=== PATIENT | female | born 1960 | race Caucasian/White ===

== ENCOUNTER 2021-08-24 07:31 | Inpatient (IN) ==
--- NOTE | 2021-08-20 12:07 | Anesthesiology Consultation ---
Date of Service August 20, 2021 Assessment & Plan (1) Encounter for pre-operative examination: Chart Review Chart Review: Acceptable Risk for Surgery History Surgery Operation Date: 08/24/21 07:45 Proposed Procedures p L3-L5 Decompression and Fusion, Possible L5-S1, Spinal Cord Monitoring - Aamir Finch DO Height/Weight Height: 5 ft 4 in Weight: 89.811 kg Allergies Allergy/AdvReac Type Severity Reaction Status Date / Time No Known Allergies Allergy Verified 08/07/21 16:12 Medications Home Medications Medication Instructions Recorded Confirmed Last Taken albuterol sulfate 90 mcg/actuation 1 inh INHALATION QID PRN 08/07/21 08/07/21 Unknown aerosol inhaler aspirin 81 mg tablet,delayed 81 mg PO QPM 08/07/21 08/07/21 Unknown release etodolac 500 mg tablet 500 mg PO BID 08/07/21 08/07/21 Unknown furosemide 40 mg tablet 40 mg PO QPM 08/07/21 08/07/21 Unknown gabapentin 100 mg tablet 100 mg PO BID 08/07/21 08/07/21 Unknown lisinopril 10 mg tablet 10 mg PO QPM 08/07/21 08/07/21 Unknown naproxen sodium 220 mg tablet 220 mg PO BID 08/07/21 08/07/21 Unknown (Aleve) simvastatin 10 mg tablet 10 mg PO PM 08/07/21 08/07/21 Unknown Past Medical History Medical History Asthma rare use of PRN inh Diverticular disease History of DVT (deep vein thrombosis) LLE post op 3-4 years ago HLD (hyperlipidemia) HTN (hypertension) Osteoarthritis Past Family History Family History Other No family history of adverse response to anesthesia Past Surgical History Surgical History History of x 3 History of colonoscopy History of hernia repair History of laparoscopy History of tonsillectomy Social History Smoking Status: Current every day smoker tobacco type: cigarettes Smoking cigarettes per day: 6 per day Do You Dip or Chew Tobacco: No Hx Alcohol Use: Yes alcohol intake frequency: holidays/special occasions only Hx Substance Use: No substance use type: does not use Lab Results Anesthesia Preop Results Results Lab Comments: 07/30/21 Hb 14 Plt 251 K+ 3.9 Creat 0.72 Testing Electrocardiogram Date: 07/30/21 Findings: + NSR @ (72)
[~2021-08-24 07:31] MED LIST: ACETAMINOPHEN 500 MG TAB PO SCH; CeleBREX 200 MG CAP PO SCH; GABAPENTIN 600 MG DOSE PO SCH; LR 15ML/HR IV SCH; ceFAZolin 2000MG 2,000 MG/15 ML SYR IV SCH
[2021-08-24] MEDS ORDERED: MIDAZOLAM HCL 1 MG/ML 2ML VIAL ONE (09:05)
[2021-08-24] MEDS ORDERED: HYDROmorphone INJ 2 MG/ML SYR/VIAL ONE (09:05)
[2021-08-24] MEDS ORDERED: ATROPINE SULFATE 0.1 MG/ML 10ML SYR IV PRN (09:25)
[2021-08-24] MEDS ORDERED: HYDROmorphone INJ 1 MG/ML SYRINGE IV PRN ×2 (09:25→14:19)
[2021-08-24] MEDS ORDERED: PROMETHAZINE HCL 6.25 MG in SODIUM CHLORIDE 0.9% 50 ML IV PRN (09:25)
[2021-08-24] MEDS ORDERED: ONDANSETRON INJ 2 MG/ML 2 ML VIAL IV PRN ×2 (09:25→14:19)
--- NOTE | 2021-08-24 10:13 | History & Physical Bridge Note ---
Date of Service August 24, 2021 History & Physical Bridge Note I have examined the patient, reviewed the History & Physical and in the interval since the performance of the History & Physical I have noted the following changes of clinical significance: no changes noted
--- NOTE | 2021-08-24 10:15 | History & Physical Report ---
Date of Service August 24, 2021 Assessment & Plan (1) Neurogenic claudication due to lumbar spinal stenosis: Plan: L3-L5 decompression and fusion, possible L5-S1 History of Present Illness Chief Complaint: Back and bilateral leg pain Primary Care Provider: Akanksha Wood This is a 61-year-old female who presents with current persistent back and leg pain. Failing course of nonoperative care she is here for surgical invention. Allergies Allergy/AdvReac Type Severity Reaction Status Date / Time No Known Allergies Allergy Verified 08/24/21 08:04 Home Medications Medication Instructions Recorded Confirmed Type albuterol sulfate 90 mcg/actuation 1 inh INHALATION QID PRN 08/07/21 08/24/21 History aerosol inhaler aspirin 81 mg tablet,delayed 81 mg PO QPM 08/07/21 08/24/21 History release etodolac 500 mg tablet 500 mg PO BID 08/07/21 08/24/21 History furosemide 40 mg tablet 40 mg PO QPM 08/07/21 08/24/21 History gabapentin 100 mg tablet 100 mg PO BID 08/07/21 08/24/21 History lisinopril 10 mg tablet 10 mg PO QPM 08/07/21 08/24/21 History naproxen sodium 220 mg tablet 220 mg PO BID 08/07/21 08/24/21 History (Aleve) simvastatin 10 mg tablet 10 mg PO PM 08/07/21 08/24/21 History Past Med/Surg History Medical History Asthma rare use of PRN inh Diverticular disease History of DVT (deep vein thrombosis) LLE post op 3-4 years ago HLD (hyperlipidemia) HTN (hypertension) Osteoarthritis Surgical History History of x 3 History of colonoscopy History of hernia repair History of laparoscopy History of tonsillectomy Family History Other No family history of adverse response to anesthesia Social History Smoking Status: Current every day smoker Cigarettes Per Day: 6 per day; Second Hand Exposure: No; Do You Dip or Chew Tobacco: No; Tobacco Cessation Education Requested by Patient: No Hx Alcohol Use: Yes Hx Substance Use: No Preferred Language: Citizen Of [place] Communication Ability: Effective Hotel Security Officer Required: No Beliefs That Will Affect Care: None Current Living Situation: Family Current Living Situation Comment: grandson lives with pt Feels Safe at Home: Yes Safety Concerns: Feels Safe At This Time Assistive Devices: Glasses Physical Exam Physical Exam: Patient is alert and oriented Heart regular rate and rhythm Lungs clear Results & Data ([facility]) Vital Signs (Past 12 Hours) Vital Signs Temp Pulse Resp BP Pulse Ox 08/24/21 08:00 36.6 C 88 18 120/67 95
[2021-08-24] MEDS ORDERED: BUPIVACAINE/EPINEPHRINE 0.25% 1:200,000 30 ML VIAL ONE (10:25)
[2021-08-24] MEDS ORDERED: ceFAZolin 330 MG/ML 1 GM VIAL ONE (10:25)
[2021-08-24] MEDS ORDERED: ePHEDrine sulfate 50 MG/ML SYR ONE (11:15)
[2021-08-24] MEDS ORDERED: FLOSEAL HEMOSTATIC MATRIX 10ML TOP ONE (11:28)
[2021-08-24] MEDS ORDERED: KETOROLAC 30 MG/ML VIAL ONE (11:40)
[2021-08-24] MEDS ORDERED: PROPOFOL IV EMULSION 10 MG/ML 20 ML VIAL IV ONE (11:40)
[2021-08-24] MEDS ORDERED: ROCURONIUM BROMIDE 10 MG/ML 5 ML VIAL IV ONE (11:40)
[2021-08-24] MEDS ORDERED: LIDOCAINE 2% 2 ML VIAL/AMP(20MG/ML) INFIL ONE (11:40)
[2021-08-24] MEDS ORDERED: ONDANSETRON INJ 2 MG/ML 2 ML VIAL ONE (11:40)
[2021-08-24] MEDS ORDERED: DEXAMETHASONE SOD INJ 4 MG/ML VIAL ONE (11:40)
--- NOTE | 2021-08-24 13:02 | Operative Report ---
Post Operative Report Pre & Post Diagnosis Operation Date: 08/24/21 09:35 Pre-Op Diagnosis: Spondylolisthesis, Lumbar Region Post-Op Diagnosis: Spondylolisthesis, Lumbar Region I identified the patient and participated in the time-out.: Yes Procedure Operation Date: 08/24/21 09:35 Actual Procedures #1 lumbar decompression with bilateral medial facetectomies and foraminotomies L2-L3, L3-L4 and L4-5. #2 posterior spinal fusion L3-L4 L4-5. #3 placement posterior instrumentation L3-L5. #4 interbody fusion L3-L4 L4-L5. #5 placement peek cage 11 x 22 mm at L3-L4 L4-5. #6 placement locally harvested morselized autograft in the posterior gutters. #7 placement infuse collagen sponge, and master graft in the posterior lateral gutters and I factor interbody space. Surgeon Aamir Finch, DO Hitcher Juan Sanders Estimated Blood Loss 500 Findings See Below The patient is 5 foot 4 inches tall weighing over 84 kg with a BMI of 32. The patient's body mass did contribute to significant technical difficulties required deepest retractors longus instruments in order to perform her procedure. This had at least 50% increase to the operative time. Specimens None Indications This is a 61-year-old female who presents to the emergent diagnosis after failing course of nonoperative care she is here for the above-mentioned procedure. Description of Procedure Patient was met with identified informed consent obtained. Patient was then taken to the operative suite underwent an patient placed in a prone position the Arya table atop the Adrián frame. All bony prominences well-padded eyes inspected to ensure no external pressure placed upon the. This point the lumbar spine was prepped and draped in normal sterile fashion. Sharp dissection with the assistance of Bovie cautery was performed down to and exposing the lamina and transverse processes of L3-L4 and L5 bilaterally. From caudal to cephalad fashion complete laminectomy L4 and L3 and partial laminectomy L2 was performed. This did include bilateral medial facetectomies and foraminotomies to address all spinal stenosis. Pedicle screws then placed at L3-L4-L5 bilaterally with assistance of fluoroscopy and appropriately sized linda placed. Failure of a transforaminal approach and left knee discectomy L4-L5 was performed endplates curetted to subcortical bleeding bone and 11 x 22 mm peek cage filled with I factor tapped in position. Then proceeded to L3-L4 and again by way of a transforaminal approach on the left pleat discectomy was performed endplates curetted to subcortically bone and again 11 x 22 mm peek cage filled with I factor tapped in position. The rods then compressed locked into final position bilaterally. The transverse processes of L3 L4-5 burred to subcortical bleeding bone. Infuse collagen sponge master graft and local autograft was placed in the posterior gutters. 15 round RAISA drain inserted. The incision was then closed with 1 Vicryl in the fascia 2-0 Vicryl subcutaneously and 4 Monocryl for final skin closure. Steri-Strip sterile dressings placed. Patient waken taken to PACU stable condition. Please note spinal cord monitoring was utilized at the procedure no changes noted. Lastly Juan Sanders was present at the entire procedure and all the patient positioning complex portions of the surgery and final skin closure. I attest to the content of the Intraoperative Record and any orders documented therein. Any exceptions are noted below.
--- NOTE | 2021-08-24 13:44 | Fluoroscopy Report ---
FL lumbar spine 2-3V HISTORY: 61 years-old Female L3-5 DECOMPRESSION/FUSION/POSSIBLE L5-S1 status post lumbar spine fusio n COMPARISON: None TECHNIQUE: 2 spot fluoroscopic images of the lumbar spine were obtained utilizing 28.0 seconds fluoro scopy time FINDINGS: Posterior linda and screw fusion hardware with discectomy changes are noted at L3-L5. The hardware appe ars intact. No unexpected opaque foreign body. Alignment appears satisfactory. IMPRESSION: Fluoroscopic assistance as above. ACT 112: Negative or not required by law. The above report was generated using voice recognition software. It may contain grammatical, syntax o r spelling errors. Electronically signed by: Ruel Velasquez M.D. 08/24/2021 1:43 PM
[2021-08-24] MEDS ORDERED: MAGNESIUM HYDROXIDE SUSP 30 ML UDC PO PRN (14:19)
[2021-08-24] MEDS ORDERED: bisacodyL 10 MG SUPP PR PRN (14:19)
[2021-08-24] MEDS ORDERED: oxyCODONE HCL IR 5 MG TAB (IMMEDIATE RELEASE) PO PRN (14:19)
[2021-08-24] MEDS ORDERED: LORazepam 0.5 MG/1 ML VIAL IV PRN (14:19)
[2021-08-24] MEDS ORDERED: FAMOTIDINE 20 MG TAB PO PRN (14:19)
[2021-08-24] MEDS ORDERED: DO NOT ADMINISTER PNEUMOCOCCAL VACCINE PRN (14:19)
[2021-08-24] MEDS ORDERED: DO NOT ADMINISTER FLU VACCINE PRN (14:19)
[2021-08-24] MEDS ORDERED: ALBUTEROL HFA 8 GM INHALER INH PRN (14:19)
[2021-08-24] MEDS ORDERED: HYDROmorphone INJ 0.5 MG/0.5 ML SYR IV PRN (14:19)
[2021-08-24] MEDS ORDERED: ONDANSETRON 4 MG OD TAB PO PRN (14:19)
[2021-08-24] MEDS ORDERED: SOD PHOSPHATE/SOD BIPHOSPHATE ENEMA 132 ML BTL PR PRN (14:19)
[2021-08-24] MEDS ORDERED: diphenhydrAMINE Capsule 25 MG CAP PO PRN (14:19)
[2021-08-24] MEDS ORDERED: METOCLOPRAMIDE HCL INJ 5 MG/ML 2 ML VIAL IV PRN (14:19)
[2021-08-24] MEDS ORDERED: NALOXONE HCL 0.4 MG/1 ML VIAL/CARP IV PRN (14:19)
[2021-08-24] MEDS ORDERED: PROMETHAZINE HCL 12.5 MG in SODIUM CHLORIDE 0.9% 50 ML IV PRN (14:19)
[2021-08-24] MEDS ORDERED: LORazepam 0.5 MG TAB PO PRN (14:19)
[2021-08-24] MEDS ORDERED: ACETAMINOPHEN 1,000 MG/100 ML VIAL IV PRN (14:19)
[2021-08-24] MEDS ORDERED: ALUMINUM/MAGNESIUM SUSP 30 ML UDC PO PRN (14:19)
[2021-08-24] MEDS ORDERED: hydrOXYzine HCl 25 MG TAB PO PRN (14:19)
--- NOTE | 2021-08-24 14:32 | Anesthesiology Progress Note ---
Date of Service August 24, 2021 Anesthesia Post Procedure Vital Signs Vital Signs: Temp Pulse Pulse Resp BP BP Pulse Ox 08/24/21 14:23 36.4 C L 72 16 127/77 94 08/24/21 14:00 36.5 C 78 21 108/77 96 08/24/21 13:50 85 11 L 138/79 91 08/24/21 13:40 82 19 120/67 98 08/24/21 13:30 80 12 116/64 97 08/24/21 13:21 36.4 C L 82 16 126/64 98 08/24/21 08:00 36.6 C 88 18 120/67 95 Pain Intensity Back: Pain Intensity: 4 Transfer of Care Handoff Completed per policy Notes Mental Status: alert / awake / arousable Patient Amnestic to Procedure: Yes Nausea / Vomiting: adequately controlled Pain: adequately controlled Airway Patency, RR, SpO2: stable & adequate BP & HR: stable & adequate Hydration State: stable & adequate Anesthetic Complications: no major complications apparent
--- NOTE | 2021-08-24 15:10 | Hospitalist Consultation ---
Date of Consultation August 24, 2021 Assessment & Plan (1) Neurogenic claudication due to lumbar spinal stenosis: - Pain management, bowel regimen and DVT ppx per the primary team - PT/OT consults - anticipates going home with home health afterwards - Follow am CBC to monitor for acute blood loss - Postop Day #0 (2) HTN (hypertension): - Continue on lisinopril, furosemide, aspirin daily (3) HLD (hyperlipidemia): - Continue on statin therapy (4) Tobacco use: - Cessation discussed at bedside, smokes 6 cig daily, encouraged reducing by 1-2 cig per week to improve wound healing ability. She is agreeable to such and willing to try. (5) Osteoarthritis: - Hx of such DVT ppx: - teds, scds, asa CODE: Full code Dispo: From home, likely to remain in the hospital x 1-2 Supervising Physician Co-Signing Physician Notes Care coordinated with Sai Licea PA-C. Agree with above note. Patient seen and examined. Please refer to her notes for full details. Vital signs reviewed. Physical exam: General exam: Alert and oriented. Not in acute distress. CVS: S1 and S2 heard, regular rate and rhythm, no murmurs. RS: Clear to auscultation, no wheezing or crackles. ABD: Soft, bowel sounds present, nontender, no distention. Musculoskeletal: s/p Back surgery. Dressing intact DISTRIBUTED ENERGY SYSTEMS CONSULTANT: Nonfocal. EXT: No edema, no erythema. Labs: Reviewed. Assessment and plan: s/p Back surgery Post op management as per ortho HTN continue home meds will monitor Other diagnosis and plan of care as per Sai Licea PA-C. Dieter sexton MD. History of Present Illness Reason for Consultation: Medical management Requesting Physician: Dr. Finch Attending Physician: Aamir Finch DO History of Present Illness This is a 61-year-old female with PMHx of HTN, HLD, history of DVT postoperatively 3 to 4 years ago, asthma, diverticular disease, osteoarthritis who underwent decompression fusion L2-L5 by Dr. Finch on 08/24/2021. Patient was visited with her daughter at bedside. She reports that she is fee ling well just a little bit tired status post having anesthesia. She has been up on the floor for 1 hour. She denies any numbness is able to move her feet without difficulty and minimal pain. Tolerating oral intake with liquids without any difficulty, a das catheter in place draining clear yellow urine, and her last bowel movement was this morning prior to surgery. Patient lives at home by herself but reports daughter plans to stay with her for several days after discharge. She admits to smoking 6 cigarettes daily so we discussed reducing number of cigarettes and cessation altogether to encourage healing of the wound. She is agreeable to dropping 1 to 2 cigarettes/week in the attempt to quit. She denies any other acute issues presently. Allergies Allergy/AdvReac Type Severity Reaction Status Date / Time No Known Allergies Allergy Verified 08/24/21 08:04 Home Medications Medication Instructions Recorded Confirmed Type albuterol sulfate 90 mcg/actuation 1 inh INHALATION QID PRN 08/07/21 08/24/21 History aerosol inhaler aspirin 81 mg tablet,delayed 81 mg PO QPM 08/07/21 08/24/21 History release etodolac 500 mg tablet 500 mg PO BID 08/07/21 08/24/21 History furosemide 40 mg tablet 40 mg PO QPM 08/07/21 08/24/21 History gabapentin 100 mg tablet 100 mg PO BID 08/07/21 08/24/21 History lisinopril 10 mg tablet 10 mg PO QPM 08/07/21 08/24/21 History naproxen sodium 220 mg tablet 220 mg PO BID 08/07/21 08/24/21 History (Aleve) simvastatin 10 mg tablet 10 mg PO PM 08/07/21 08/24/21 History Patient History Medical History (Updated 08/24/21 @ 15:08 by Anuja Gibbs PA-C) Asthma rare use of PRN inh Diverticular disease History of DVT (deep vein thrombosis) LLE post op 3-4 years ago HLD (hyperlipidemia) HTN (hypertension) Osteoarthritis Surgical History History of x 3 History of colonoscopy History of hernia repair History of laparoscopy History of tonsillectomy Family History Other No family history of adverse response to anesthesia Social History Smoking Status: Current every day smoker Cigarettes Per Day: 6 per day; Second Hand Exposure: No; Do You Dip or Chew Tobacco: No; Tobacco Cessation Education Requested by Patient: No Hx Alcohol Use: Yes Hx Substance Use: No Preferred Language: Arabic Communication Ability: Effective Data Integration Developer Required: No Beliefs That Will Affect Care: None Current Living Situation: Family Current Living Situation Comment: grandson lives with pt Feels Safe at Home: Yes Safety Concerns: Feels Safe At This Time Assistive Devices: Glasses and Walker Review of Systems Review of Systems: Constitutional: No fever, sweats or chills Eyes: No diplopia, no worsening or blurred vision ENT: normal hearing, no trouble swallowing Respiratory: No cough, sputum, dyspnea at rest or on exertion Cardiovascular: No chest pain, tightness or palpitations Abdomen: No pain, nausea, vomiting, diarrhea or constipation Musculoskeletal: No joint pain, calf pain, swelling Neurologic: No weakness, numbness/tingling, or balance problems Psychiatric: No anxiety or depression Skin: No rash or itch Physical Exam Physical Exam: General: awake, alert, no apparent distress, obese with BMI of 32 Head: Normocephalic, atraumatic ENT: PERRL, EOMI, no pharyngeal exudate, mucous membranes moist Chest: Clear to auscultation, on 2 L via NC, no adventitious breath sounds Cardiac: Regular rate and rhythm, no murmur, no JVD, normal peripheral pulses, good capillary refill Abdominal: NABS x 4 quadrants, soft, nondistended, nontender to palpation, no rebound or guarding Back: RAISA drain nearly full, dressing c/d/i Extremities: Normal inspection, no peripheral edema or erythema, calfs nontender to palpation Psych: Normal mood and affect Neuro: AAO x 3, strength intact bilaterally and rated 5/5, no motor deficits, speech is clear, no peripheral sensory deficits Results & Data Results & Data ([facility]) Vital Signs (Past 12 Hours) Vital Signs Temp Pulse Pulse Resp BP BP Pulse Ox 08/24/21 14:23 36.4 C L 72 16 127/77 94 08/24/21 14:00 36.5 C 78 21 108/77 96 08/24/21 13:50 85 11 L 138/79 91 08/24/21 13:40 82 19 120/67 98 08/24/21 13:30 80 12 116/64 97 08/24/21 13:21 36.4 C L 82 16 126/64 98 08/24/21 08:00 36.6 C 88 18 120/67 95
[2021-08-24] MEDS ORDERED: ACETAMINOPHEN 500 MG TAB PO STA (17:45)
[2021-08-24] MEDS: ACETAMINOPHEN 500 MG TAB PO PRN (17:45)
[2021-08-24] MEDS: SODIUM CHLORIDE 0.9% 1000ML 1,000 ML IV SCH (17:45)
[2021-08-24] MEDS: GABAPENTIN 100 MG CAP PO SCH (20:22)
[2021-08-24] MEDS: ceFAZolin 2000MG 2,000 MG/15 ML SYR IV SCH (20:22)
[2021-08-24] MEDS: ASPIRIN 81 MG ECTAB PO SCH (20:22)
[2021-08-24] MEDS: SIMVASTATIN 10 MG TAB PO SCH (20:22)
[2021-08-24] MEDS: DOCUSATE SODIUM/SENNA 50/8.6MG TAB PO SCH (20:22)
[2021-08-24] MEDS ORDERED: lisinopril 10 MG TAB PO SCH (21:00)
[2021-08-24] MEDS ORDERED: FUROSEMIDE 40 MG TAB PO SCH (21:00)
[2021-08-25] MEDS: SODIUM CHLORIDE 0.9% 1000ML 1,000 ML IV SCH ×3 (00:30→16:46)
[2021-08-25] MEDS: ceFAZolin 2000MG 2,000 MG/15 ML SYR IV SCH (04:01)
[2021-08-25] MEDS: POLYETHYLENE (MIRALAX) 17 GM PACK PO SCH ×3 (05:46→17:27)
[2021-08-25] MEDS ORDERED: oxyCODONE HCL IR 5 MG TAB (IMMEDIATE RELEASE) PO PRN (07:57)
[2021-08-25] MEDS ORDERED: SODIUM CHLORIDE 0.9% 1000ML 500 ML IV ONE (08:04)
--- NOTE | 2021-08-25 08:58 | Orthopedic Progress Note ---
Date of Service August 25, 2021 Assessment & Plan (1) Neurogenic claudication due to lumbar spinal stenosis: Plan: Patient is doing well postop day #1. We will continue GI and DVT prophylaxis as well as pain control. She should be seen by physical therapy this morning and we can DC her Christianson catheter when she is mobilized. We will keep her throughout the weekend and likely discharge her to home on Friday. Admission and Anticipated Discharge Date Admission Date: August 24, 2021 Subjective Patient seen bedside in room 357. She is awake and alert and oriented. She states that her pain is well controlled. Her leg symptoms are significantly improved. She is not having any radicular complaints at this time. She denies any other numbness, tingling, or paresthesias. Physical Exam Physical Exam: On exam she is alert and oriented. She is nontender in the abdomen or calves. Her dressing is clean dry and intact. Her RAISA drain is holding suction. Strength and sensation are grossly intact Results & Data ([facility]) Vital Signs (Past 12 Hours) Vital Signs Temp Pulse Resp BP Pulse Ox 08/25/21 08:01 71 80/49 L 08/25/21 07:41 36.5 C 67 16 63/39 L 90 08/25/21 03:17 36.6 C 78 18 92/55 L 93 08/24/21 23:12 36.6 C 79 18 100/66 92
[2021-08-25] MEDS: GABAPENTIN 100 MG CAP PO SCH ×2 (10:06→20:45)
[2021-08-25 11:11] LABS: Basophils # (auto) 0.01 K/uL (0-0.2); Basophils % (auto) 0.1 %; Eosinophils # (auto) 0.01 K/uL (0-0.5); Eosinophils % (auto) 0.1 %; Hematocrit (blood only) 34.5 % (37-47); Hemoglobin 11.3 g/dL (12.0-16.0); Immature Granulocytes # (auto) 0.02 K/uL (0.00-0.02); Immature Granulocytes % (auto) 0.2 %; Lymphocytes # (auto) 1.11 K/uL (1.2-3.4); Lymphocytes % (auto) 8.5 %; Mean Corpuscular Hemoglobin 31.5 pg (25-34); Mean Corpuscular Hgb Conc 32.8 g/dL (32-36); Mean Corpuscular Volume 96.1 fL (80-100); Mean Platelet Volume 10.2 fL (7.4-10.4); Monocytes # (auto) 0.78 K/uL (0.11-0.59); Neutrophils # (auto) 11.16 K/uL (1.4-6.5); Neutrophils % (auto) 85.1 %; Platelet Count 238 K/uL (130-400); RDW Coefficient of Variation 13.1 % (11.5-14.5); RDW Standard Deviation 45.7 fL (36.4-46.3); Red Blood Count 3.59 M/uL (4.2-5.4); White Blood Count 13.09 K/uL (4.8-10.8)
[2021-08-25 11:34] LABS: BUN Creatinine Ratio 25.3 (10-20); Calcium 8.4 mg/dl (8.5-10.1); Creatinine Clr Calc Pharmacy 70.6 ml/min; Est GFR (African American) 82.8 ml/min; Est GFR (Non-African American) 71.4 ml/min; Potassium 3.8 mmol/L (3.5-5.1)
[2021-08-25] MEDS: traMADol HCL 50 MG TABLET PO PRN ×3 (16:27→21:33)
--- NOTE | 2021-08-25 18:15 | Hospitalist Progress Note ---
Date of Service August 25, 2021 Assessment & Plan (1) Neurogenic claudication due to lumbar spinal stenosis: Plan: S/P lumbar decompression, fusion surgery by Dr. 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 (5) Osteoarthritis: Plan: DVT Px: As per Primary Team CODE STATUS: Full code Admission and Anticipated Discharge Date Admission Date: August 24, 2021 Subjective Patient is seen and examined at bedside Back pain at surgical site is controlled States having dizziness this morning Blood pressure low this morning but improved with IV fluids Denies any chest pain, shortness of breath, nausea, abdominal pain Offers no other complaints Review of Systems Review of Systems: All systems reviewed & are unremarkable except as noted in Subjective Physical Exam Physical Exam: Physical Exam: Vitals signs as noted above General Appearance:Obese, no apparent distress Head: normocephalic, Atraumatic Eyes: normal inspection, EOMI Neck: supple, Trachea midline Respiratory/Chest: Normal breath sounds, CTA Cardiovascular: S1, S2, No murmur Abdomen/GI:Soft, Non tender, Bowel sounds present Back:Surgical site in dressing Extremities/Musculoskeletal:normal inspection, no edema Neurologic/Psych:AAOX3, grossly no focal neurological deficits Skin: normal color, warm Results & Data Results & Data ([facility]) Vital Signs (Past 12 Hours) Vital Signs Temp Pulse Resp BP Pulse Ox 08/25/21 16:42 36.9 C 81 16 102/62 94 08/25/21 15:00 37 C 84 16 90/54 L 95 08/25/21 11:52 36.9 C 78 16 90/53 L 93 08/25/21 10:55 87/49 L 08/25/21 09:34 76 102/66 08/25/21 08:01 71 80/49 L 08/25/21 07:41 36.5 C 67 16 63/39 L 90 Laboratory Results Short CBC 08/25/21 Range/Units 10:50 WBC 13.09 H (4.8-10.8) K/uL Hgb 11.3 L (12.0-16.0) g/dL Hct 34.5 L (37-47) % Plt Count 238 (130-400) K/uL [facility] 08/25/21 10:50 Sodium 140 Potassium 3.8 Chloride 105 Carbon Dioxide 29 BUN 22 Creatinine 0.87 Glucose 141 H Calcium 8.4 L
[2021-08-25] MEDS: ASPIRIN 81 MG ECTAB PO SCH (20:44)
[2021-08-25] MEDS: SIMVASTATIN 10 MG TAB PO SCH (20:44)
[2021-08-25] MEDS: DOCUSATE SODIUM/SENNA 50/8.6MG TAB PO SCH (20:45)
[2021-08-26] MEDS: SODIUM CHLORIDE 0.9% 1000ML 1,000 ML IV SCH (00:29)
[2021-08-26] MEDS: POLYETHYLENE (MIRALAX) 17 GM PACK PO SCH ×5 (01:15→23:04)
[2021-08-26] MEDS: traMADol HCL 50 MG TABLET PO PRN ×4 (02:38→20:54)
[2021-08-26 06:24] LABS: Hemoglobin 10.2 g/dL (12.0-16.0); Mean Corpuscular Hgb Conc 31.9 g/dL (32-36); Mean Corpuscular Volume 97.3 fL (80-100); Mean Platelet Volume 10.5 fL (7.4-10.4); Platelet Count 221 K/uL (130-400); RDW Coefficient of Variation 13.3 % (11.5-14.5); Red Blood Count 3.29 M/uL (4.2-5.4); White Blood Count 9.26 K/uL (4.8-10.8)
[2021-08-26 06:48] LABS: BUN Creatinine Ratio 26.4 (10-20); Calcium 8.1 mg/dl (8.5-10.1); Creatinine Clr Calc Pharmacy 85.3 ml/min; Est GFR (Non-African American) 89.8 ml/min; Potassium 4.4 mmol/L (3.5-5.1)
--- NOTE | 2021-08-26 07:32 | Orthopedic Progress Note ---
Date of Service August 26, 2021 Assessment & Plan (1) Neurogenic claudication due to lumbar spinal stenosis: Plan: Patient stable postop day #2. She is going to mobilize today with physical therapy. She is going to continue to use her tramadol for pain control. We will continue with GI and DVT prophylaxis. Our anticipation is that she will be discharged home tomorrow if all goes well. Admission and Anticipated Discharge Date Admission Date: August 24, 2021 Subjective Patient was seen bedside in room 357. She states yesterday she had some issues with her pain medication. She had low blood pressure and the oxycodone was difficult to tolerate. She is now just taking tramadol and seems to tolerate that better. She is not nauseous at this point. She is not complaining of any leg pain. She does have soreness in the back itself. She denies any other numbness, tingling, or paresthesias. Physical Exam Physical Exam: On exam she is alert and oriented. She is resting comfortably. Her calves are supple nontender her abdomen soft and nontender. Her dressing is clean dry and intact her RAISA drain is in place and holding suction. Results & Data ([facility]) Vital Signs (Past 12 Hours) Vital Signs Temp Pulse Resp BP Pulse Ox 08/25/21 22:15 37.0 C 74 18 106/66 97
[2021-08-26] MEDS: GABAPENTIN 100 MG CAP PO SCH ×2 (08:45→20:55)
[2021-08-26] MEDS ORDERED: SODIUM CHLORIDE 0.9% 1000ML 1,000 ML IV ONE (11:52)
[2021-08-26] MEDS: ACETAMINOPHEN 500 MG TAB PO PRN (14:56)
--- NOTE | 2021-08-26 15:00 | Hospitalist Progress Note ---
Date of Service August 26, 2021 Assessment & Plan (1) Neurogenic claudication due to lumbar spinal stenosis: Plan: S/P lumbar decompression, fusion surgery by Dr. 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 (5) Osteoarthritis: Plan: DVT Px: As per Primary Team CODE STATUS: Full code Admission and Anticipated Discharge Date Admission Date: August 24, 2021 Subjective Patient is seen and examined at bedside States feeling well today Pain at surgical site is controlled Ambulated with physical therapy earlier today Blood pressure relatively low Dizziness much improved Denies any chest pain, shortness of breath, nausea, abdominal pain Review of Systems Review of Systems: All systems reviewed & are unremarkable except as noted in Subjective Physical Exam 2 Physical Exam: Physical Exam: Vitals signs as noted above General Appearance:Obese, no apparent distress Head: normocephalic, Atraumatic Eyes: normal inspection, EOMI Neck: supple, Trachea midline Respiratory/Chest: Normal breath sounds, CTA Cardiovascular: S1, S2, No murmur Abdomen/GI:Soft, Non tender, Bowel sounds present Back:Surgical site in dressing Extremities/Musculoskeletal:normal inspection, no edema Neurologic/Psych:AAOX3, grossly no focal neurological deficits Skin: normal color, warm Results & Data Results & Data ([facility]) Vital Signs (Past 12 Hours) Vital Signs Temp Pulse Resp BP Pulse Ox Pulse Ox 08/26/21 12:47 94 08/26/21 08:57 36.8 C 74 18 100/65 94 Laboratory Results Short CBC 08/26/21 Range/Units 05:42 WBC 9.26 (4.8-10.8) K/uL Hgb 10.2 L (12.0-16.0) g/dL Hct 32.0 L (37-47) % Plt Count 221 (130-400) K/uL [facility] 08/26/21 05:42 Sodium 139 Potassium 4.4 Chloride 107 Carbon Dioxide 29 BUN 19 Creatinine 0.72 Glucose 94 Calcium 8.1 L
[2021-08-26] MEDS: ASPIRIN 81 MG ECTAB PO SCH (20:54)
[2021-08-26] MEDS: DOCUSATE SODIUM/SENNA 50/8.6MG TAB PO SCH (20:55)
[2021-08-26] MEDS: SIMVASTATIN 10 MG TAB PO SCH (20:55)
[2021-08-27] MEDS: POLYETHYLENE (MIRALAX) 17 GM PACK PO SCH ×2 (05:51→10:49)
[2021-08-27] MEDS: traMADol HCL 50 MG TABLET PO PRN (06:00)
[2021-08-27 06:21] LABS: Hemoglobin 11.3 g/dL (12.0-16.0); Mean Corpuscular Hgb Conc 32.3 g/dL (32-36); Mean Corpuscular Volume 95.9 fL (80-100); Mean Platelet Volume 9.7 fL (7.4-10.4); Platelet Count 221 K/uL (130-400); RDW Standard Deviation 45.6 fL (36.4-46.3); Red Blood Count 3.65 M/uL (4.2-5.4); White Blood Count 8.39 K/uL (4.8-10.8)
[2021-08-27 06:44] LABS: BUN Creatinine Ratio 21.8 (10-20); Calcium 8.7 mg/dl (8.5-10.1); Creatinine Clr Calc Pharmacy 111.6 ml/min; Est GFR (African American) 116.5 ml/min; Est GFR (Non-African American) 100.5 ml/min; Potassium 4.2 mmol/L (3.5-5.1)
[2021-08-27] MEDS: GABAPENTIN 100 MG CAP PO SCH ×2 (08:22→20:59)
[2021-08-27] MEDS: ACETAMINOPHEN 500 MG TAB PO PRN ×2 (08:28→21:01)
--- NOTE | 2021-08-27 09:31 | Orthopedic Progress Note ---
Date of Service August 27, 2021 Assessment & Plan (1) Neurogenic claudication due to lumbar spinal stenosis: Plan: This time continue physical therapy monitor RAISA output anticipate discharge home tomorrow. Admission and Anticipated Discharge Date Admission Date: August 24, 2021 Subjective Patient's back pain is controlled leg symptoms markedly improved. She is struggling with some nausea secondary to her narcotic pain medications. Physical Exam Physical Exam: Physical exam she has good strength testing. Results & Data ([facility]) Vital Signs (Past 12 Hours) Vital Signs Temp Pulse Resp BP Pulse Ox 08/27/21 07:41 36.8 C 76 16 116/74 94 08/26/21 22:17 36.8 C 75 17 109/70 92
--- NOTE | 2021-08-27 10:36 | Hospitalist Progress Note ---
Date of Service August 27, 2021 Assessment & Plan (1) Neurogenic claudication due to lumbar spinal stenosis: Plan: S/P lumbar decompression, fusion surgery by Dr. 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 Wilson, please see addendum Thank you for this consultation. We will follow the patient with you during their hospital stay. You can reach a member of the [facility] Hospitalist Team 03/03 via hospitalist role on [employer] text. The chart was completed utilizing [employer] Speech voice recognition software. Grammatical errors, random word insertions, pronoun errors, and incomplete sentences are an occasional consequence of this system due to software limitations, ambient noise, and hardware issues. Any formal questions or concerns about the content, text, or information contained within the body of this dictation should be directly addressed to the provider for clarification. Admission and Anticipated Discharge Date Admission Date: August 24, 2021 Supervising Physician Co-Signing Physician Notes Patient is seen and examined at bedside. States having minimal dizziness today but improved from yesterday. Back pain at surgical site is controlled. Had bowel movement today. Denies any chest pain, shortness of breath, nausea, abdominal pain. On exam patient is obese, normocephalic atraumatic, EOMI, normal breath sounds, clear to auscultation, S1-S2, no murmur, no pedal edema, abdomen soft, nontender, normal bowel sounds, Back-surgical site in dressing,+ drain, alert, awake, oriented, grossly no focal deficits. Lumbar spinal stenosis with neurogenic claudication S/P surgery. Doing well postoperatively. Continue PT OT. Postoperative hypotension improved with IV fluids. Continue bowel regimen to prevent constipation. Currently no indication for blood transfusion. I personally reviewed the record. Patient is interviewed and examined at bedside. Patient's care is coordinated with Caridad Delatorre PA-C. Please refer to the documentation above for details of patient's presentation and for discussion of other issues. Subjective Patient was seen and examined in room 357-2. Follow-up lumbar surgery by Dr. Finch. Currently she complains of nausea secondary to narcotic pain medication. She states plan is to discharge home tomorrow and to try steroids today. Currently she feels back pain is stable and denies any radicular symptoms. Did have small BM this morning. She is tolerating liquids, but decreased food intake secondary to nausea. She denies any fever, chills, sweats, lightheadedness, dizziness, chest pain, shortness of breath, vomiting, abdominal pain. She denies any melena or hematochezia. She does complain of increased, "rumbling," in her stomach and gas. Review of Systems Review of Systems: All systems reviewed & are unremarkable except as noted in HPI & below Physical Exam Physical Exam: Gen: WD/WN, NAD, F A&O x3 HEENT: Normocephalic, atraumatic, conjunctivae moist, sclerae anicteric, mucous membranes moist. Lung: Clear to Auscultation bilaterally, no wheezes/rales/rhonchi Heart: Regular rate, regular rhythm, no murmurs, rubs, or gallops Abdomen: Soft, NT, ND +BS x 4 Extremities: No edema, lumbar dressing CDI, RAISA drain with serosang drainage Skin: Warm, no rash, negative turgor. Results & Data Results & Data ([facility]) Vital Signs (Past 12 Hours) Vital Signs Temp Pulse Resp BP Pulse Ox 08/27/21 07:41 36.8 C 76 16 116/74 94 Laboratory Results Short CBC 08/27/21 Range/Units 06:11 WBC 8.39 (4.8-10.8) K/uL Hgb 11.3 L (12.0-16.0) g/dL Hct 35.0 L (37-47) % Plt Count 221 (130-400) K/uL BMP 08/27/21 06:11 Sodium 136 Potassium 4.2 Chloride 102 Carbon Dioxide 28 BUN 12 Creatinine 0.55 L Glucose 101 H Calcium 8.7 Medications Administered Current Inpatient Medications Acetaminophen (Acetaminophen 500 Mg Tab) 1,000 mg PO Q8H PRN PRN Reason: MILD Pain Scale 1,2,3 & Pre PT Stop: 09/23/21 14:18 Last Admin: 08/27/21 08:28 Dose: 1,000 mg Documented by: Al Hydrox/Mg Hydrox/Simethicone (Aluminum/Magnesium Susp 30 Ml Udc) 30 ml PO Q6H PRN PRN Reason: Dyspepsia Stop: 09/23/21 14:18 Albuterol (Albuterol Hfa 8 Gm Inhaler) 1 puffs INH QID PRN PRN Reason: sob Stop: 09/23/21 14:18 Aspirin (Aspirin 81 Mg Ectab) 81 mg PO QPM NICO Stop: 09/23/21 20:59 Last Admin: 08/26/21 20:54 Dose: 81 mg Documented by: Bisacodyl (Bisacodyl 10 Mg Supp) 10 mg MI DAILY PRN PRN Reason: Constipation Stop: 09/23/21 14:18 Last Admin: 08/26/21 17:48 Dose: 10 mg Documented by: Diphenhydramine HCl (Diphenhydramine Capsule 25 Mg Cap) 25 mg PO Q6H PRN PRN Reason: Allergic Rhinitis/Insomnia Stop: 09/23/21 14:18 Famotidine (Famotidine 20 Mg Tab) 20 mg PO Q12H PRN PRN Reason: Dyspepsia Stop: 09/23/21 14:18 Furosemide (Furosemide 40 Mg Tab) 40 mg PO QPM NICO Stop: 09/23/21 20:59 Last Admin: 08/24/21 20:22 Dose: 40 mg Documented by: Gabapentin (Gabapentin 100 Mg Cap) 100 mg PO BID NICO Stop: 09/23/21 20:59 Last Admin: 08/27/21 08:22 Dose: Not Given Documented by: Hydromorphone HCl (Hydromorphone Inj 0.5 Mg/0.5 Ml Syr) 0.5 mg IV Q3H PRN PRN Reason: MODERATE Pain (Scale 4,5,6) & Pre PT Stop: 09/07/21 14:18 Hydromorphone HCl (Hydromorphone Inj 1 Mg/Ml Syringe) 1 mg IV Q3H PRN PRN Reason: SEVERE Pain (Scale 7,8,9,10) Stop: 09/07/21 14:18 Hydroxyzine HCl (Hydroxyzine Hcl 25 Mg Tab) 25 mg PO Q8H PRN PRN Reason: Anxiety Stop: 09/23/21 14:18 Promethazine HCl 12.5 mg/ (Sodium Chloride) 50.5 mls @ 202 mls/hr IV Q6H PRN PRN Reason: Nausea &/or Vomiting Stop: 09/23/21 14:18 Acetaminophen (Ofirmev) 1,000 mg in 100 mls @ 400 mls/hr IV Q8H PRN PRN Reason: Pain Rating 1-3 & Pre PT Stop: 08/27/21 14:18 Lorazepam (Ativan) 0.5 mg in 1 mls @ 1 mls/min IV Q8H PRN PRN Reason: Sedation/Anxiety Stop: 09/23/21 14:18 Dexamethasone 8 mg/ Syringe 2 mls @ 1 mls/min IV DAILY NICO Stop: 09/26/21 09:29 Influenza Virus Vaccine Quadrival (Do Not Administer Flu Vaccine) 1 ea N/A PRN PRN PRN Reason: Notification Stop: 09/23/21 14:18 Lisinopril (Lisinopril 10 Mg Tab) 10 mg PO QPM NICO Stop: 09/23/21 20:59 Last Admin: 08/24/21 20:23 Dose: 10 mg Documented by: Lorazepam (Lorazepam 0.5 Mg Tab) 0.5 mg PO Q8H PRN PRN Reason: Sedation/Anxiety Stop: 09/23/21 14:18 Magnesium Hydroxide (Magnesium Hydroxide Susp 30 Ml Udc) 30 ml PO Q24H PRN PRN Reason: Constipation Stop: 09/23/21 14:18 Metoclopramide HCl (Metoclopramide Hcl Inj 5 Mg/Ml 2 Ml Vial) 10 mg IV Q6H PRN PRN Reason: Nausea &/or Vomiting Stop: 09/23/21 14:18 Naloxone HCl (Naloxone Hcl 0.4 Mg/1 Ml Vial/Carp) 0.1 mg IV Q5M PRN PRN Reason: Oversedation/Resp depression Stop: 09/23/21 14:18 Ondansetron HCl (Ondansetron Inj 2 Mg/Ml 2 Ml Vial) 4 mg IV Q6H PRN PRN Reason: Nausea &/or Vomiting Stop: 09/23/21 14:18 Ondansetron HCl (Ondansetron 4 Mg Od Tab) 4 mg PO Q6H PRN PRN Reason: Nausea Stop: 09/23/21 14:18 Oxycodone HCl (Oxycodone Hcl Ir 5 Mg Tab (Immediate Release)) 5 mg PO Q4H PRN PRN Reason: Pain & Pre PT Stop: 09/07/21 14:18 Pneumococcal Polyvalent Vaccine (Do Not Administer Pneumococcal Vaccine) 1 ea N/A PRN PRN PRN Reason: Notification Stop: 09/23/21 14:18 Polyethylene Glycol (Polyethylene (Miralax) 17 Gm Pack) 17 gm PO Q6 NICO Stop: 09/24/21 05:59 Last Admin: 08/27/21 05:51 Dose: Not Given Documented by: Senna/Docusate Sodium (Docusate Sodium/Senna 50/8.6mg Tab) 2 tab PO HS NICO Stop: 09/23/21 20:59 Last Admin: 08/26/21 20:55 Dose: 2 tab Documented by: Simvastatin (Simvastatin 10 Mg Tab) 10 mg PO PM NICO Stop: 09/23/21 20:59 Last Admin: 08/26/21 20:55 Dose: 10 mg Documented by: Sodium Biphosphate/Sodium Phosphate (Sod Phosphate/Sod Biphosphate Enema 132 Ml Btl) 132 ml MI ONE PRN PRN Reason: Constipation Stop: 09/23/21 14:18 Tramadol HCl (Tramadol Hcl 50 Mg Tablet) 50 - 100 mg PO Q4H PRN PRN Reason: Moderate-Severe pain & Pre PT Stop: 09/23/21 14:18 Last Admin: 08/27/21 06:00 Dose: 50 mg Documented by:
[2021-08-27] MEDS: dexAMETHasone 8 MG in SYRINGE 0 ML IV SCH (10:49)
[2021-08-27] MEDS: ASPIRIN 81 MG ECTAB PO SCH (20:59)
[2021-08-27] MEDS: DOCUSATE SODIUM/SENNA 50/8.6MG TAB PO SCH (20:59)
[2021-08-27] MEDS: SIMVASTATIN 10 MG TAB PO SCH (20:59)
[2021-08-28] MEDS: dexAMETHasone 8 MG in SYRINGE 0 ML IV SCH (08:00)
[2021-08-28] MEDS: GABAPENTIN 100 MG CAP PO SCH (08:00)
[2021-08-28] MEDS: ACETAMINOPHEN 500 MG TAB PO PRN (08:03)
--- NOTE | 2021-08-28 10:57 | Hospitalist Progress Note ---
Date of Service August 28, 2021 Assessment & Plan (1) Neurogenic claudication due to lumbar spinal stenosis: Plan: S/P lumbar decompression, fusion surgery by Dr. 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 Wilson, please see a ddendum Thank you for this consultation. We will follow the patient with you during their hospital stay. You can reach a member of the [facility] Hospitalist Team 03/03 via hospitalist role on [employer] text. The chart was completed utilizing [employer] Speech voice recognition software. Grammatical errors, random word insertions, pronoun errors, and incomplete sentences are an occasional consequence of this system due to software limitations, ambient noise, and hardware issues. Any formal questions or concerns about the content, text, or information contained within the body of this dictation should be directly addressed to the provider for clarification. Admission and Anticipated Discharge Date Admission Date: August 24, 2021 Supervising Physician Co-Signing Physician Notes Patient is seen and examined at bedside. States doing well today. Dizziness resolved. BP improved. Denies any chest pain, shortness of breath, nausea, abdominal pain. On exam patient is obese, normocephalic atraumatic, EOMI, normal breath sounds, clear to auscultation, S1-S2, no murmur, no pedal edema, abdomen soft, nontender, normal bowel sounds, Back-surgical site in dressing,+ drain, alert, awake, oriented, grossly no focal deficits. Lumbar spinal stenosis with neurogenic claudication S/P surgery. Continue PT OT, wound care. Postoperative hypotension resolved with IV fluids. I personally reviewed the record. Patient is interviewed and examined at bedside. Patient's care is coordinated with Caridad Delatorre PA-C. Please refer to the documentation above for details of patient's presentation and for discussion of other issues. Subjective Patient was seen and examined in room 357-2. Follow-up lumbar surgery by Dr. Finch. She feels nausea is much improved. She also feels back pain is improved. She slept better last evening. Denies chest pain, shortness of breath, nausea, vomiting, fever, chills, sweats. She is urinating without difficulty. Less gas today. Positive BM. Planning to be discharged today Review of Systems Review of Systems: All systems reviewed & are unremarkable except as noted in HPI & below Physical Exam Physical Exam: Gen: WD/WN, NAD, F A&O x3 HEENT: Normocephalic, atraumatic, conjunctivae moist, sclerae anicteric, mucous membranes moist. Lung: Clear to Auscultation bilaterally, no wheezes/rales/rhonchi Heart: Regular rate, regular rhythm, no murmurs, rubs, or gallops Abdomen: Soft, NT, ND +BS x 4 Extremities: No edema, lumbar dressing CDI, RAISA drain with serosang drainage Skin: Warm, no rash, negative turgor. Results & Data Results & Data ([facility]) Vital Signs (Past 12 Hours) Vital Signs Temp Pulse Pulse Resp BP Pulse Ox 08/28/21 07:38 36.4 C L 70 16 150/87 H 95 08/27/21 23:23 36.7 C 69 16 133/77 92 Medications Administered Current Inpatient Medications Acetaminophen (Acetaminophen 500 Mg Tab) 1,000 mg PO Q8H PRN PRN Reason: MILD Pain Scale 1,2,3 & Pre PT Stop: 09/23/21 14:18 Last Admin: 08/28/21 08:03 Dose: 1,000 mg Documented by: Al Hydrox/Mg Hydrox/Simethicone (Aluminum/Magnesium Susp 30 Ml Udc) 30 ml PO Q6H PRN PRN Reason: Dyspepsia Stop: 09/23/21 14:18 Albuterol (Albuterol Hfa 8 Gm Inhaler) 1 puffs INH QID PRN PRN Reason: sob Stop: 09/23/21 14:18 Aspirin (Aspirin 81 Mg Ectab) 81 mg PO QPM NICO Stop: 09/23/21 20:59 Last Admin: 08/27/21 20:59 Dose: 81 mg Documented by: Bisacodyl (Bisacodyl 10 Mg Supp) 10 mg OR DAILY PRN PRN Reason: Constipation Stop: 09/23/21 14:18 Last Admin: 08/26/21 17:48 Dose: 10 mg Documented by: Diphenhydramine HCl (Diphenhydramine Capsule 25 Mg Cap) 25 mg PO Q6H PRN PRN Reason: Allergic Rhinitis/Insomnia Stop: 09/23/21 14:18 Famotidine (Famotidine 20 Mg Tab) 20 mg PO Q12H PRN PRN Reason: Dyspepsia Stop: 09/23/21 14:18 Furosemide (Furosemide 40 Mg Tab) 40 mg PO QPM [facility] Stop: 09/23/21 20:59 Last Admin: 08/24/21 20:22 Dose: 40 mg Documented by: Gabapentin (Gabapentin 100 Mg Cap) 100 mg PO BID [facility] Stop: 09/23/21 20:59 Last Admin: 08/28/21 08:00 Dose: Not Given Documented by: Hydromorphone HCl (Hydromorphone Inj 0.5 Mg/0.5 Ml Syr) 0.5 mg IV Q3H PRN PRN Reason: MODERATE Pain (Scale 4,5,6) & Pre PT Stop: 09/07/21 14:18 Hydromorphone HCl (Hydromorphone Inj 1 Mg/Ml Syringe) 1 mg IV Q3H PRN PRN Reason: SEVERE Pain (Scale 7,8,9,10) Stop: 09/07/21 14:18 Hydroxyzine HCl (Hydroxyzine Hcl 25 Mg Tab) 25 mg PO Q8H PRN PRN Reason: Anxiety Stop: 09/23/21 14:18 Promethazine HCl 12.5 mg/ (Sodium Chloride) 50.5 mls @ 202 mls/hr IV Q6H PRN PRN Reason: Nausea &/or Vomiting Stop: 09/23/21 14:18 Lorazepam (Ativan) 0.5 mg in 1 mls @ 1 mls/min IV Q8H PRN PRN Reason: Sedation/Anxiety Stop: 09/23/21 14:18 Dexamethasone 8 mg/ Syringe 2 mls @ 1 mls/min IV DAILY NICO Stop: 09/26/21 09:29 Last Admin: 08/28/21 08:00 Dose: 1 mls/min Documented by: Influenza Virus Vaccine Quadrival (Do Not Administer Flu Vaccine) 1 ea N/A PRN PRN PRN Reason: Notification Stop: 09/23/21 14:18 Lisinopril (Lisinopril 10 Mg Tab) 10 mg PO QPM NICO Stop: 09/23/21 20:59 Last Admin: 08/24/21 20:23 Dose: 10 mg Documented by: Lorazepam (Lorazepam 0.5 Mg Tab) 0.5 mg PO Q8H PRN PRN Reason: Sedation/Anxiety Stop: 09/23/21 14:18 Magnesium Hydroxide (Magnesium Hydroxide Susp 30 Ml Udc) 30 ml PO Q24H PRN PRN Reason: Constipation Stop: 09/23/21 14:18 Metoclopramide HCl (Metoclopramide Hcl Inj 5 Mg/Ml 2 Ml Vial) 10 mg IV Q6H PRN PRN Reason: Nausea &/or Vomiting Stop: 09/23/21 14:18 Naloxone HCl (Naloxone Hcl 0.4 Mg/1 Ml Vial/Carp) 0.1 mg IV Q5M PRN PRN Reason: Oversedation/Resp depression Stop: 09/23/21 14:18 Ondansetron HCl (Ondansetron Inj 2 Mg/Ml 2 Ml Vial) 4 mg IV Q6H PRN PRN Reason: Nausea &/or Vomiting Stop: 09/23/21 14:18 Ondansetron HCl (Ondansetron 4 Mg Od Tab) 4 mg PO Q6H PRN PRN Reason: Nausea Stop: 09/23/21 14:18 Oxycodone HCl (Oxycodone Hcl Ir 5 Mg Tab (Immediate Release)) 5 mg PO Q4H PRN PRN Reason: Pain & Pre PT Stop: 09/07/21 14:18 Pneumococcal Polyvalent Vaccine (Do Not Administer Pneumococcal Vaccine) 1 ea N/A PRN PRN PRN Reason: Notification Stop: 09/23/21 14:18 Senna/Docusate Sodium (Docusate Sodium/Senna 50/8.6mg Tab) 2 tab PO HS NICO Stop: 09/23/21 20:59 Last Admin: 08/27/21 20:59 Dose: Not Given Documented by: Simvastatin (Simvastatin 10 Mg Tab) 10 mg PO PM NICO Stop: 09/23/21 20:59 Last Admin: 08/27/21 20:59 Dose: 10 mg Documented by: Sodium Biphosphate/Sodium Phosphate (Sod Phosphate/Sod Biphosphate Enema 132 Ml Btl) 132 ml OR ONE PRN PRN Reason: Constipation Stop: 09/23/21 14:18 Tramadol HCl (Tramadol Hcl 50 Mg Tablet) 50 - 100 mg PO Q4H PRN PRN Reason: Moderate-Severe pain & Pre PT Stop: 09/23/21 14:18 Last Admin: 08/27/21 06:00 Dose: 50 mg Documented by:
--- NOTE | 2021-08-28 11:02 | Discharge Summary ---
Date of Service August 28, 2021 Admission HPI Per Admitting Provider This is a 61-year-old female who presents with current persistent back and leg pain. Failing course of nonoperative care she is here for surgical invention. Principal Diagnosis Lumbar spinal stenosis with neurogenic claudication Discharge Data Allergies Allergy/AdvReac Type Severity Reaction Status Date / Time No Known Allergies Allergy Verified 08/24/21 08:04 Consultations 08/24/21 14:19 Consult Hospitalist Routine Procedures Performed Operation Date: 08/24/21 09:35 Actual Procedures p L3-L5 Decompression and Fusion, Interbody at L3-L4 and L4-L5, Spinal Cord Monitoring(Not Applicable) - Aamir Finch DO Ordered Studies 08/24/21 09:35 [place] lumbar spine 2-3V Routine Hospital Course (1) Neurogenic claudication due to lumbar spinal stenosis: Patient with lumbar decompression fusion trial as well as taken to orthopedic for postoperative. Postop day one she is up and ambulating progressive postop day #2 throughout [facility] three. Postop #4 RAISA drain decreasing probably. Excellent strength testing. Subsequent discharge home. Discharge orders instructions found the chart for further review. Total Time Total Time Spent Total Time Spent (In Minutes): 20 minutes Discharge Plan Discharge Items Patient Disposition: Home - Self-Care Reason For Visit: Spondylolisthesis, Lumbar Region Discharge Diagnosis: Lumbar spinal stenosis with neurogenic claudication Activity: As commented below Non-emergency contact: Primary Care Provider Call non-emergency contact if: you have any medication questions Follow-up/Referrals: Aamir Finch DO [Surgeon] - 09/10/21 12:20 pm (APPT WITH [facility]) Akanksha Wood M.D. [Primary Care Provider] - Diet: Regular Addtl Attending Provider Instructions: ACTIVITY RECOMMENDATIONS: SELF CARE INSTRUCTIONS AFTER THORACIC/LUMBAR FUSIONS 1. You may walk to your tolerance. It is good exercise for your legs and back. Expect some back and intermittent leg aches and pains. 2. You may perform "counter-top" level activities (make a sandwich, ganesh with a project, etc.). 3. No bending or lifting of more than 10 pounds or back twisting of any nature (roll like a log when turning in bed). 4. You may ride in a car for 20-30 minutes at a time. No driving until after your first visit with your doctor. 5. Frequent changes of position and restricting sitting to 30 minutes at a time will help limit the amount of back spasms and stiffness you may experience. 6. You may discontinue the use of ambulatory aids (cane, crutches, etc.) once your strength and confidence allow. 7. You may rug receiving clerk the shower and let water strike your incision when you arrive home at least once daily. Do not take a tub bath, sit in a hot tub or go into a swimming pool until after your first recheck in the office. SPECIAL CARE INSTRUCTIONS: VERY IMPORTANT TO READ AND REVIEW A. Your surgical incision has been closed with a cosmetic suture under the skin that will dissolve in about 6 weeks. In 14 days, you can use a pair of clean scissors and cut the suture that is left outside of the skin at the ends of your incision. 1. The small skin tapes can be removed 7 days after surgery if they have not fallen off by that point. 2. You may keep the wound open to air as much as possible to promote healing after post-op day number 5 unless told otherwise by your doctor. 3. If you think the wound looks like it is becoming infected (redness or worsening drainage) and/or you are experiencing fever, chill or worsening back pain and muscle spasms, contact the office so that we may evaluate you as soon as possible. B. Complications are uncommon, but please contact us if you have any signs or symptoms of: 1. wound infection (fever higher than 102.5 degrees F, redness, separation of wound, drainage, or increasing pain from the incision) 2. blood clots in legs (pain, swelling, redness and warmth in legs) 3. urinary tract infection (fever higher than 102.5 degrees F, burning upon urination or increased frequency of urination) 4. nerve problems (inability to walk on your toes or heels, numbness, loss of bowel or bladder control) 5. any other symptoms that concern you C. Please call the office at if you have any concerns or questions about your operation or recovery. D. No smoking! Smoking drastically decreases the chance of a solid fusion. E. Do not take any anti-inflammatory medications (Indocin, Advil, Motrin, Aspirin, Naprosyn, etc.) as these may inhibit the chance of a solid fusion. Tylenol is okay to take for pain. MANAGING PAIN AFTER SPINAL SURGERY 1. Narcotic medication is intended for short-term use and will be provided for surgical pain. Surgical pain usually lasts for a period of 4-6 weeks. Narcotic medication includes Percocet, Vicodin, Darvocet, Tylenol #3 or Lortab. 2. Longer-term pain is more appropriately treated with non-narcotic medication such as Tylenol ES. 3. Muscle spasm is not appropriately treated with narcotics. Muscle relaxers such as Soma, Flexeril or Skelaxin can be used along with Tylenol ES. 4. Remember that we all live with some "aches and pains". This is not unusual or uncommon after an injury or as we get older. a. Back pain is expected and may include muscle spasms for 4 to 6 weeks after surgery. The pain should gradually improve. If the pain worsens for no apparent reason, please contact the office. b. Intermittent leg pain may also be experienced and should not be concerned about unless it worsens for no apparent reason. If so, please contact the office. 5. We will provide appropriate medication within the normal guidelines of their prescribed use. We will also be very cautious and aware of potential abuse and extended duration of patients' medication needs. a. Pain medications are for your comfort and to assist with sleep and rest so that the tissue can heal. They are not provided in order to return to normal activity and should not be used through the day. To do so or worsening pain at night can result from ongoing tissue damage and development of tolerance to the prescribed medicine. 6. Please allow 2-3 days to process refills. Prescriptions will not be mailed but must be picked up at the office. FOLLOW UP VISIT: Keep your scheduled follow-up appointment. Any questions, please call the office at . Pending Studies at Discharge: No Stand-Alone Forms: My [email or web address], Smoking Cessation Medications and DC Order Prescriptions: New tramadol 50 mg tablet 50 mg PO Q6H PRN (Reason: pain, moderate) Qty: 30 RF: 0 Continued furosemide 40 mg Tablet 40 mg PO QPM RF: 0 simvastatin 10 mg Tablet 10 mg PO PM RF: 0 aspirin 81 mg Tablet,Delayed Release (Dr/Ec) 81 mg PO QPM RF: 0 lisinopril 10 mg Tablet 10 mg PO QPM RF: 0 gabapentin 100 mg Tablet 100 mg PO BID RF: 0 albuterol sulfate 90 mcg/actuation Hfa Aerosol Inhaler 1 inh INHALATION QID PRN (Reason: sob) RF: 0 Discontinued naproxen sodium [Aleve] 220 mg Tablet 220 mg PO BID RF: 0 etodolac 500 mg Tablet 500 mg PO BID RF: 0 Discharge Orders: Discharge Order (Routine); Ordered 08/28/21 Ordered By: Aamir Finch Admission Data Admit Date/Time: 08/24/21 13:05 Attending Provider: Aamir Finch Admit Provider: Aamir Finch Primary Care Provider: Akanksha Wood Other Providers: Shahbaz Wilson
== END 2021-08-28 15:09 | disposition home or self-care (01) | DRG 454 ==
LOC: ASU 07:31 → 3W 13:05